=== PATIENT | female | born 1985 | race African-American/Black ===

== ENCOUNTER 2017-02-20 03:02 | Emergency (ER) | payer SELFPAY ==
[~2017-02-20] VITALS: Ht 160 cm; Wt 68.1 kg
[2017-02-20 03:08] VITALS: BP 123/84
== END 2017-02-20 06:25 | disposition left against medical advice (07) ==
LOC: ER 03:02
DX: Z53.21 Procedure and treatment not carried out due to patient leaving prior to being seen by health care provider (principal)